=== PATIENT | female | born 1940 | race Caucasian/White ===

== ENCOUNTER 2016-06-29 12:23 | Day surgery (SDC) | payer OTHER ==
[~2016-06-29 12:23] MED LIST: LIDO/EPI 1% **Not for Epidural 20 ML MDV ONE
[2016-06-29] MEDS ORDERED: OXYMETAZOLINE 30 ML NASAL SPRAY EACHNARE ONE (13:45)
[2016-06-29] MEDS ORDERED: REMIFENTANIL HCL 1 MG VIAL ONE (14:06)
[2016-06-29] MEDS ORDERED: PROPOFOL/EMULSION 500 MG/50 ML BOTTLE IV ONE (14:06)
[2016-06-29] MEDS ORDERED: PROPOFOL 200 MG/20 ML VIAL ONE (14:10)
[2016-06-29] MEDS ORDERED: fentaNYL 100 MCG/2 ML INJ ONE ×2 (14:12→16:28)
[2016-06-29] MEDS ORDERED: DEXAMETHASONE 4 MG/ML VIAL ONE (14:12)
[2016-06-29] MEDS ORDERED: LIDOCAINE 2% 5 ML SDV ONE (14:13)
[2016-06-29] MEDS ORDERED: ROCURONIUM 50 MG/5 ML VIAL ONE (14:13)
[2016-06-29] MEDS ORDERED: ONDANSETRON 4 MG/2 ML VIAL ONE (14:13)
[2016-06-29] MEDS ORDERED: MIDAZOLAM 2 MG/2 ML VIAL ONE (14:15)
[2016-06-29] MEDS ORDERED: PHENYLEPHRINE HCL 100 MCG/ML SYR ONE (14:28)
[2016-06-29] MEDS ORDERED: epHEDrine SULFATE 10 MG/ML SYR ONE (14:49)
[2016-06-29] MEDS ORDERED: NEOSTIGMINE METHYLSULFATE 5 MG/5 ML SYR ONE (16:05)
[2016-06-29] MEDS ORDERED: ACETAMINOPHEN 500 MG TAB ONE (17:40)
--- NOTE | 2016-06-29 18:12 | GOP ---
[f rep st] OPERATIVE REPORT DATE OF OPERATION: 06/29/2016 SURGEON: Radha Hurtado MD ANESTHESIA: General endotracheal anesthesia. PREOPERATIVE DIAGNOSIS: Chronic sinusitis involving all sinuses. POSTOPERATIVE DIAGNOSIS: Chronic sinusitis involving all sinuses. PROCEDURE PERFORMED: 1. Right frontal balloon sinuplasty. 2. Left frontal balloon sinuplasty. 3. Right maxillary antrostomy with tissue removal. 4. Left maxillary antrostomy. 5. Right total ethmoidectomy. 6. Left total ethmoidectomy. 7. Right sphenoid antrostomy. 8. Left sphenoid antrostomy. 9. Inferior turbinate reduction. 10. Image guidance. FINDINGS: ESTIMATED BLOOD LOSS: 50 cc. INDICATIONS: A 75-year-old female with persistent sinus symptoms despite multiple attempts at medical therapy and cultures. Patient had obvious mucopurulence on exam, but unfortunately, nothing was cultured out and no further medical therapy was able to be offered, and patient elected for surgical correction. DESCRIPTION OF PROCEDURE: After informed consent, patient brought back to the operating room, placed in supine position. General endotracheal anesthesia obtained. Table was rotated 180 degrees. The image guidance system was registered and the patient was then prepped and draped in the usual fashion. 1 % lidocaine with epinephrine was injected into the bilateral middle turbinates and bilateral lateral nasal wall and frontal recess. Afrin-soaked pledgets were inserted in bilateral middle meatus. Starting on the right side, the Acclarent balloon was used to identify the right frontal sinus. The guidewire was inserted and the right frontal was transilluminated. The balloon was inserted in 2 different places, dilated and withdrawn. Afterwards, inspection of the area showed mucosal edema and some mild bleeding. This was then irrigated out. Attention was paid to the left side. The same was performed. Able to use the lighted guidewire to transilluminate the left frontal sinus clearly, and the balloon was inserted and dilated. Next, attention was paid back to the right side. Uncinate process was removed and the right maxillary antrostomy was performed widely using a backbiter and the shaver. There was found to be mucopurulence, and this was cultured. The sinus was then irrigated out. There was found to be polypoid edema and polyps within the sinus. The shaver was then inserted into the maxillary sinus and the polyps were then removed from the sinus. The ethmoid bulla and anterior and posterior ethmoids were then removed using the shaver under image guidance back to the [facility]. Next, the face of the sphenoid was identified and entered, and the shaver was used to somewhat enlarge it. There was found to just be mucosal edema, but no mucopurulence. Attention was then paid to the left side. Again, the uncinate was taken down using the backbiter and the shaver. There again was mucopurulence emanating from the maxillary sinus and an antrostomy was performed widely, and then the culture was taken from within the sinus. This was then irrigated and cleaned out. There was less mucosal edema on this side, and nothing to remove from the sinus itself. Anterior and posterior ethmoids were then taken down using the shaver. Again, mucopurulence was not seen in ethmoids, just mucosal edema. Lastly, the left sphenoid was opened up. At this point, the [employer] inferior turbinate blade was put on the shaver. Starting on the right side, incision was made in the head of the inferior turbinate. The shaver was then used to remove the submucosal tissue, and the turbinate was then outfractured. The same was performed on the left side. There was easy access to all the sinuses; therefore, no septoplasty was performed during this procedure. At this point, the sinuses and nasal cavity were irrigated and suctioned out. The Sinu-Foam dissolvable packing was placed in bilateral middle meatus. An OG tube was used to suction out gastric contents. The patient was awoken from anesthesia, extubated and transferred to the PACU in stable condition. COMPLICATIONS: None. /[id number]/[id number]
== END 2016-06-29 20:30 | disposition home or self-care (01) ==
LOC: FSGY 12:23
PROVIDERS: ATTEND Otolaryngology
PROC: 09TV4ZZ Resection of Left Ethmoid Sinus, Percutaneous Endoscopic Approach (ICD-10-PCS; 2016-06-29)
PROC: 09CR4ZZ Extirpation of Matter from Left Maxillary Sinus, Percutaneous Endoscopic Approach (ICD-10-PCS; 2016-06-29)
PROC: 09TL0ZZ Resection of Nasal Turbinate, Open Approach (ICD-10-PCS; 2016-06-29)
PROC: 09DW4ZZ Extraction of Right Sphenoid Sinus, Percutaneous Endoscopic Approach (ICD-10-PCS; 2016-06-29)
PROC: 09DX4ZZ Extraction of Left Sphenoid Sinus, Percutaneous Endoscopic Approach (ICD-10-PCS; 2016-06-29)
PROC: 09D Ear, Nose, Sinus, Extraction (ICD-10-PCS; principal; 2016-06-29 14:00)
PROC: 09DT4ZZ Extraction of Left Frontal Sinus, Percutaneous Endoscopic Approach (ICD-10-PCS; 2016-06-29 14:00)
PROC: 09TU4ZZ Resection of Right Ethmoid Sinus, Percutaneous Endoscopic Approach (ICD-10-PCS; 2016-06-29 14:00)
DX: J32.9 Chronic sinusitis, unspecified (principal); J33.9 Nasal polyp, unspecified; R43.0 Anosmia; I10 Essential (primary) hypertension; E78.5 Hyperlipidemia, unspecified; M81.0 Age-related osteoporosis without current pathological fracture; E66.9 Obesity, unspecified; Z68.31 Body mass index [BMI] 31.0-31.9, adult
CPT/HCPCS: 30140; 31255; 31256; 31276; 31288; C1726; J0690; J1100; J2250; J2370; J2405; J2704; J2710; J3010